=== PATIENT | female | born 1970 | race Caucasian/White ===

== ENCOUNTER → 2017-03-07 | Outpatient (CLI) | payer OTHER, SELFPAY | PROVIDERS: Family Provider Emergency Medicine; Visit Provider Specialist | DX: R42 Dizziness and giddiness (principal); R53.1 Weakness | CPT/HCPCS: 70553; 72141; 76376; A9576 ==

== ENCOUNTER 2017-05-01 14:02 | Outpatient (RCR) | payer OTHER, SELFPAY ==
--- NOTE | 2017-05-01 15:57 | HMH.PTOPEV ---
Rehab Outpatient Evaluation Rehab OP Evaluation Start: 05/01/17 14:09 Freq: Status: Active Protocol: Document 05/01/17 15:37 PWNELSON (Rec: 05/01/17 15:55 PWNELSON [id number]) Electronically Signed By Abhay Murray PT 05/01/17 15:37 Outpatient Therapy Subjective History Subjective History This is the initial Physical Therapy evaluation for Estefani Hall. Pt is a 46 y/o female referred to PT for c/o balance disturbances. Pt reports c/o balance issues since 2007. Pt also reports c /o weakness and quick fatigue in both UE's and LE's. Pt reprots she jeri decreased sensation in bilateral feet. Pt reports long hx of ear infections, drainage, and hearing loss in L ear. Chief Complaint Weakness Other Symptom Type Other Symptoms Relieved By Nothing Symptoms Aggravated By Physical Activity Twisting Prior Functional Limitations Recreation Activity Walking Balance Bending/Stooping Current Functional Limitations Recreation Activity Walking Balance Bending/Stooping Symptom Description Intermittent Balance Eval Subjective Hx of Complaint Comment C/o dizziness and vertigo Chief Complaint vertigo Yes Did you feel dizzy, unsteady or faint? Yes Activity at onset unknown Prior Functional Limitations Prior Functional [place] Level fxnl independant Current Functional Limitations Comment rapid movements Hx of Falls Hx Falls No Number in last 6 months 0 Gait/Posture Asssessment General Gait Observation Wide Based Gait Assistive Devices None / NA Level of Transfer Assist Independent Hip Observation in Gait Swing No Deviation Hip Observation in Gait Stance No Deviation Ankle/Foot Observation in Gait Swing No Deviation Ankle/Foot Observation in Gait Stance No Deviation Body Alignment Posture Rigid Nystagmus Nystagmus Presence None Timed Up and Go Test 1. Is the Timed Up and Go test result > no or = to 12 seconds? 3. Is the Timed Up and Go Test result < yes 12 seconds? Oculomotor Gaze
== END 2017-05-01 14:03 | disposition home or self-care (01) ==
LOC: PT 14:02
PROVIDERS: Family Provider Emergency Medicine; PCP Emergency Medicine; Visit Provider Specialist
DX: R42 Dizziness and giddiness (principal); R53.1 Weakness

== ENCOUNTER → 2017-05-06 11:29 | Outpatient (CLI) | payer OTHER, SELFPAY ==
[2017-05-06 11:54] LABS: Basophils % 0.5 % (0.1-2.0); Eosinophils # 0.2 K/mm3 (0.0-0.4); Eosinophils % 3.5 % (0.1-12.0); Hematocrit 41.9 % (37.0-47.0); Hemoglobin 13.9 g/dL (12.2-16.2); Lymphocytes # 1.9 K/mm3 (0.7-4.5); Lymphocytes % 32.9 K/mm3 (10-50); Mean Corpuscular HGB Conc 33.1 g/dL (31.8-35.4); Mean Corpuscular Hemoglobin 30.1 pg (27.0-31.2); Mean Corpuscular Volume 90.9 fl (81-99); Mean Platelet Volume 7.5 fl (7.4-10.4); Monocytes # 0.3 K/mm3 (0.1-1.0); Monocytes % 5.9 % (1.7-9.3); Neutrophils # 3.2 K/mm3 (1.8-7.8); Neutrophils % 57.2 % (37.0-80.0); Platelet Count 310 K/mm3 (142-424); Red Blood Count 4.62 M/mm3 (4.20-5.40); Red Cell Distribution Width 12.7 % (11.5-17.5); White Blood Count 5.7 K/mm3 (4.8-10.8)
[2017-05-06 14:20] LABS: Alanine Aminotransferase 22 U/L (12-78); Albumin Level 4.1 gm/dL (3.4-5.0); Albumin/Globulin Ratio 1.5 (1.1-1.8); Alkaline Phosphatase 84 U/L (46-116); Anion Gap 11.1 mEq/L (5-15); Aspartate Amino Transferase 12 U/L (15-37); Bilirubin,Total 0.8 mg/dL (0.2-1.0); Blood Urea Nitrogen 10 mg/dL (7-18); Calcium 8.7 mg/dL (8.5-10.1); Carbon Dioxide 28 mmol/L (21.0-32.0); Chloride 107 mmol/L (98-107); Creatine Kinase 95 U/L (26-192); Creatinine,Serum 0.67 mg/dL (0.55-1.02); Estimated Glomerular Filt Rate 95 ml/min (>60); GFR (African American) 115 ML/MIN (>60); Globulin 2.8 gm/dl (1.3-3.2); Glucose 88 mg/dL (74-106); Potassium 4.1 mmoL/L (3.5-5.1); Sodium 142 mmol/L (136-145); Thyroid Stimulating Hormone 1.18 uIU/ml (0.358-3.740); Total Protein,Serum 6.9 gm/dL (6.4-8.2)
[2017-05-07 13:21] LABS: Folate 10.3 ng/mL (>3.0); Vitamin B12 330 pg/mL (232-1245)
[2017-05-08 11:51] LABS: Antinuclear Antibodies, IFA Negative (.)
== END ==
PROVIDERS: Visit Provider Specialist
DX: R42 Dizziness and giddiness (principal); R53.1 Weakness
CPT/HCPCS: 36415; 80053; 82550; 82607; 82746; 84443; 85025; 86038

== ENCOUNTER → 2017-06-16 12:26 | Outpatient (POV) | payer OTHER, SELFPAY | PROVIDERS: Family Provider Emergency Medicine; PCP Nurse Practitioner Family; Visit Provider Specialist | DX: R29.898 Other symptoms and signs involving the musculoskeletal system (principal); R53.1 Weakness; R42 Dizziness and giddiness | CPT/HCPCS: 95886; 95910 ==

== ENCOUNTER → 2017-06-19 14:18 | Outpatient (CLI) | payer OTHER, SELFPAY ==
[2017-06-19 15:53] LABS: Free Thyroxine Index 2.9 ug/dL (5.93-13.13); Magnesium 1.7 mg/dL (1.4-2.2); Thyroid Stimulating Hormone 0.78 uIU/ml (0.358-3.740); Triiodothryronine (T3) Uptake 32 % (31-39)
[2017-06-21 19:03] LABS: Vitamin B12 543 pg/mL (232-1245)
[2017-06-23 19:08] LABS: 1,25-Dihydroxy, Vitamin D-2 32 pg/mL (.)
[2017-06-24 06:16] LABS: 1,25 Dihydroxy Vitamin D 62 pg/mL (.); 1,25-Dihydroxy, Vitamin D-3 30 pg/mL (.)
== END ==
PROVIDERS: PCP Nurse Practitioner Family; Visit Provider Nurse Practitioner Family
DX: F41.9 Anxiety disorder, unspecified (principal)
CPT/HCPCS: 36415; 82607; 82652; 83735; 84436; 84443; 84479

== ENCOUNTER → 2017-10-03 10:20 | Outpatient (CLI) | payer OTHER, SELFPAY ==
--- NOTE | 2017-10-03 10:21 | MM_ITS ---
MM Dig screening mamm BI w/CAD ORDERING PHYSICIAN : John Ji PATIENT AGE: 46 years GENDER: Female COMPARISON: September, and March, INDICATION: ITS.REASON: screening. Routine screening.. Patient with no hormones. Does reports soreness at the left and right breast. Greater on left. No surgeries or procedures. Family history. Maternal grandmother with breast cancer TECHNIQUE: Standard CC and MLO images were obtained. R2 CAD reviewed. FINDINGS: Low-density breast bilaterally with no dominant mass nor suspicious calcification. . No architectural distortion. It significant decreased breast density since 2010 with progressive fatty replacement since then evident . RIGHT BREAST: No significant new findings. Right breast stable minimal fibrotic elements behind the right nipple extending towards upper-outer quadrant LEFT BREAST: Tiny area of nodularity behind the left nipple is not changed appreciably on MLO view.. Can be followed in one year. IMPRESSION: No significant interval change. Bilateral follow-up in one year recommended and should be encouraged. BI-RADS Category: 2 Benign Finding(s) RECOMMENDED FOLLOW-UP: 1YR 1 YEAR FOLLOW-UP (A letter has been sent to the patient regarding results of the study.)
== END ==
PROVIDERS: Family Provider Emergency Medicine; PCP Emergency Medicine; Visit Provider Nurse Practitioner Family
DX: Z12.31 Encounter for screening mammogram for malignant neoplasm of breast (principal)
CPT/HCPCS: 77067

== ENCOUNTER → 2017-11-11 11:06 | Outpatient (POV) | payer OTHER, SELFPAY | PROVIDERS: Family Provider Emergency Medicine; PCP Emergency Medicine; Visit Provider Otolaryngology | DX: Z00.00 Encounter for general adult medical examination without abnormal findings (principal) ==

== ENCOUNTER → 2017-11-25 11:08 | Outpatient (POV) | payer OTHER, SELFPAY | PROVIDERS: Family Provider Emergency Medicine; PCP Emergency Medicine; Visit Provider Otolaryngology | DX: Z00.00 Encounter for general adult medical examination without abnormal findings (principal) ==

== ENCOUNTER → 2017-12-10 09:30 | Outpatient (REF) | payer OTHER, SELFPAY ==
[2017-12-10 13:46] LABS: Amphetamine/Metha Screen,Urine Negative ng/mL (<1000); Barbiturates Screen,Urine Negative ng/mL (<200); Benzodiazepines Screen,Urine Negative ng/mL (<200); Cannabinoid Screen,Urine Negative ng/mL (<50); Cocaine Screen,Urine Negative ng/mL (<300); Methadone Screen,Urine Negative ng/mL (<300); Opiate Screen,Urine Negative ng/mL (<300); Phencyclidine Screen,Urine Negative ng/mL (<25)
== END ==
LOC: LAB 09:30
PROVIDERS: Visit Provider Emergency Medicine
DX: Z79.899 Other long term (current) drug therapy (principal)
CPT/HCPCS: 80305

== ENCOUNTER → 2017-12-29 11:25 | Outpatient (CLI) | payer OTHER, SELFPAY | PROVIDERS: Family Provider Emergency Medicine; PCP Emergency Medicine; Visit Provider Emergency Medicine | DX: Z79.899 Other long term (current) drug therapy (principal); J44.9 Chronic obstructive pulmonary disease, unspecified | CPT/HCPCS: 94060; 94640; 94727; 94729 ==

== ENCOUNTER 2020-02-09 12:12 | Emergency (ER) | payer OTHER, SELFPAY ==
[2020-02-09 12:15] VITALS: BP 124/64; PULSE 74; RESP 20; TEMP 36.8; O2SAT 99; BMI 18.8
--- NOTE | 2020-02-09 12:29 | HMH.EDUTC ---
[facility] [place] Clinical Impression: Sinusitis Qualifiers: Sinusitis location: unspecified location Chronicity: unspecified Qualified Code(s): J32.9 - Chronic sinusitis, unspecified Otitis media Qualifiers: Otitis media type: unspecified Laterality: left Qualified Code(s): H66.92 - Otitis media, unspecified, left ear Disposition: Home, Self-Care Condition on Discharge: Good Instructions: Sinusitis, Middle Ear Infection, Azithromycin Additional Instructions: *Monitor Temp, Over the counter Motrin or Tylenol as directed/as needed Tylenol every 4 hours and Motrin every 6 hours (as long as your family doctor has told you that you can take it) for fever or pain. and straight to ER if unable to lower temp less than 101.0 after medication given *Warm salt water gargles may help to soothe the throat *Throat Lozenges *Warm fluids like tea with honey may help to soothe the throat *Sleep elevated *Humidifier/Vaporizer *Flonase 2 sprays in each nostril daily but be aware that it may take 2-3 days before you notice improvement Follow up IMMEDIATELY for new or worsening symptoms or no Noticeable improvement over the next 48-72 hours. 911 for difficulty breathing or swallowing Prescriptions: Fluticasone Propionate [Flonase 50mcg nasal spray 16gm] 1 spr NS DAILY #1 bottle Transmission Status: Pending to [facility] # Azithromycin [Z-Waqas 250mg Tab] 250 mg PO DIRECTED #6 tab Transmission Status: Pending to [facility] # Referrals: Derick Farias MD [Primary Care Provider] - As needed Forms: Work/School Release Medical Decision Making - Tank Inquiry Pt receiving controlled substance: No Tank was queried for this patient: No Vital Signs: 02/09/20 12:15 Temperature 98.2 F Temperature Source Oral Pulse Rate [Right Brachial] 74 Respiratory Rate 20 Blood Pressure [Right Arm] 124/64 Blood Pressure Mean [Right Arm] 84 Blood Pressure Source [Right Arm] Automatic Cuff Blood Pressure Position [Right Arm] Sitting 02 Sat by Pulse Oximetry 99 Oxygen Delivery Method Room Air [facility] [place] - General Stated complaint: L ear pain, cough Time Seen by Provider: 02/09/20 12:29 Mode of Arrival: Ambulatory Source of Information: Patient Limitations: No Limitations Description of Symptoms (Recalled from Triage Doc. by RN): PATIENT C/O COUGH, RUNNY NOSE, NASAL CONGESTION, DRY THROAT, AND LEFT EAR PAIN SINCE FRIDAY HEENT Symptoms (Recalled from RN notes): Yes Resp Symptoms (Recalled from RN notes): Yes Skin Symptoms (Recalled from RN notes): No MS Symptoms (Recalled from RN notes): No Functional Status (Recalled from RN notes): WNL - History of Present Illness Provider Complaint: Patient state that about this time every year she gets an upper respiratory infection States that she has been having some sinus pain and pressure, itchy scratchy throat, cough but has history of COPD and pain in her left ear States that she wasnt able to go to work and they wanted her to get checked before she can come back - Related Data Previous Rx's Medication Instructions Recorded Azithromycin [Z-Waqas 250mg Tab] 250 mg PO DIRECTED #6 tab 02/09/20 Fluticasone Propionate [Flonase 1 spr NS DAILY #1 bottle 02/09/20 50mcg nasal spray 16gm] Allergies Allergy/AdvReac Type Severity Reaction Status Date / Time Penicillins Allergy Unknown Verified 04/30/19 11:44 Sulfa (Sulfonamide Allergy Unknown Verified 04/30/19 11:44 Antibiotics) [SULFA (SULFONAMIDE ANTIBIOTICS)] omeprazole [From Prilosec] Allergy Verified 04/30/19 11:44 - Worker's Comp Is this a Worker's Comp case?: No [facility] History - Hepatitis A Screen Drug use history?: No High risk sexual behaviors?: No History of sexually transmitted infection?: No Currently employed?: No Childcare worker?: No Do you have indoor plumbing?: Yes Do you have electricity?: Yes Attestation statement:: This patient has been screened for
[2020-02-09 12:37] VITALS: BP 124/64; PULSE 74; RESP 20; TEMP 36.8; O2SAT 99
== END 2020-02-09 12:38 | disposition home or self-care (01) ==
PROVIDERS: Emergency Provider Nurse Practitioner; PCP Family Medicine
DX: J32.9 Chronic sinusitis, unspecified (principal); H66.92 Otitis media, unspecified, left ear; K21.9 Gastro-esophageal reflux disease without esophagitis; J44.9 Chronic obstructive pulmonary disease, unspecified; Z88.0 Allergy status to penicillin; Z88.2 Allergy status to sulfonamides
CPT/HCPCS: 99201

== ENCOUNTER 2020-06-28 18:57 | Emergency (ER) | payer OTHER, SELFPAY ==
[2020-06-28 19:24] VITALS: BP 146/92; PULSE 87; RESP 19; TEMP 37; O2SAT 98; BMI 21.4
[2020-06-28 19:26] LABS: Apearance,Urine Clear (Clear); Color,Urine Yellow (Yellow); PH,Urine 6.5 (5.0-8.5)
[2020-06-28 19:27] LABS: Bilirubin,Urine Negative (Negative); Blood, Urine 2+ (Negative); Glucose,Urine (UA) Negative (Negative); Ketones,Urine TRACE (Negative); Protein,Urine 1+ (Negative); Specific Gravity, Urine 1.025 (1.005-1.030); UTC Leukocyte Esterase,Urine 1+ (Negative); UTC Nitrate,Urine Negative (Negative); Urobilinogen,Urine 1 EU/dl (0.2)
--- NOTE | 2020-06-28 19:29 | HMH.EDUTC ---
[facility] [place] Impression: UTI (urinary tract infection) Qualifiers: Urinary tract infection type: site unspecified Hematuria presence: with hematuria Qualified Code(s): N39.0 - Urinary tract infection, site not specified; R31.9 - Hematuria, unspecified Disposition: Home, Self-Care Condition on Discharge: Good Instructions: DI for Urinary Tract Infection (UTI), Blood in Urine, DI for Ear Pain-Adult, Nitrofurantoin Additional Instructions: *Increase fluids. Water not Soda or Tea *Start antibiotic immediately and be sure to take as ordered for the FULL length of time although you should start to see improvement over the next 48 hours *Pyridium as needed Remember this medication will turn your urine Rice. This is normal but it will stain what ever it gets on *You should not use Pyridium for more than 48 hours. If so , follow up with your primary physician to review urine culture and ensure that antibiotic is adequate for infection *Be SURE to follow up anytime for new or worsening symptoms with your family doctor. AND in 48 hours for urine culture results with your family doctor, if you do not have a doctor then you may call back to the [facility] for urine culture results and further treatment. We do recommend that you choose and establish care with a Primary Care Physician. AND follow up with them in 10-14 days to repeat UA to ensure infection is resolved and blood no longer present *Be sure to let your PCP know that we sent urine cultures from the [facility] so they can follow up to ensure that you area the on the correct antibiotic Call your doctor office and make appointment for 48 hours (2 days from today) to follow up and get the results of your urine culture and further treatment Make sure to follow up for your Urine culture results Return if needed Straight to ER if any life threatening symptoms Prescriptions: Nitrofurantoin Monohyd/M-Cryst [Macrobid 100 mg Capsule] 100 mg PO BID 7 Days #14 cap Transmission Status: Pending to [facility] # Phenazopyridine HCl [Pyridium 200mg Tablet] 200 pow PO TID #6 tab Transmission Status: Pending to [facility] [employer] # Referrals: Derick Farias MD [Primary Care Provider] - As needed Forms: Work/School Release Time of Disposition: 19:55 Medical Decision Making - Tank Inquiry Pt receiving controlled substance: No Tank was queried for this patient: No Vital Signs: 06/28/20 19:24 Temperature 98.6 F Temperature Source Oral Pulse Rate [Right Brachial] 87 Respiratory Rate 19 Blood Pressure [Right Arm] 146/92 H Blood Pressure Mean [Right Arm] 110 Blood Pressure Source [Right Arm] Automatic Cuff Blood Pressure Position [Right Arm] Sitting 02 Sat by Pulse Oximetry 98 Oxygen Delivery Method Room Air - Lab Data Lab results reviewed: Yes: I reviewed the patient's lab results. Lab Results 06/28/20 19:00: Urine Color Yellow, Urine Appearance Clear, Urine pH 6.5, Ur Specific [place] 1.025, Urine Protein 1+, Urine Glucose (UA) Negative, Urine Ketones Trace, Urine Blood 2+, Urine Nitrate Negative, Urine Bilirubin Negative, Urine Urobilinogen 1, Ur Leukocyte Esterase 1+ A 06/28/20 19:26: Strep Scn Rapid Clinic Negative Orders (Tests/Meds): ORDERS Category Date Time Status Strep Screen Confirmation Stat Micro 06/28/20 19:26 Received Urine Culture Stat Micro 06/28/20 19:26 Ordered [facility] [facility] [place] - General Stated complaint: Possible UTI, left ear ache Time Seen by Provider: 06/28/20 19:29 Mode of Arrival: Ambulatory Source of Information: Patient Limitations: No Limitations Description of Symptoms (Recalled from Triage Doc. by RN): Patient reports possible UTI, ear and throat pain. HEENT Symptoms (Recalled from RN notes): Yes Resp Symptoms (Recalled from RN notes): No Skin Symptoms (Recalled from RN notes): No MS Symptoms (Recalled from RN notes): No Functional Status (Recalled from RN notes): wnl - History of Present Illness Provider Comp
[2020-06-28 19:38] LABS: UTC Strep Screen (Rapid) Negative (Negative)
[2020-06-28 20:00] VITALS: BP 146/92; PULSE 87; RESP 19; TEMP 37; O2SAT 98
== END 2020-06-28 20:00 | disposition home or self-care (01) ==
PROVIDERS: Emergency Provider Nurse Practitioner; PCP Family Medicine
DX: N30.01 Acute cystitis with hematuria (principal); K21.9 Gastro-esophageal reflux disease without esophagitis; J44.9 Chronic obstructive pulmonary disease, unspecified; Z88.0 Allergy status to penicillin; Z88.2 Allergy status to sulfonamides; Z79.899 Other long term (current) drug therapy
CPT/HCPCS: 81003; 87086; 87088; 87186; 87880; 99202; G0463

== ENCOUNTER 2020-10-03 16:59 | Emergency (ER) | payer OTHER, SELFPAY ==
[2020-10-03 17:00] VITALS: BP 140/86; PULSE 65; RESP 20; TEMP 37.1; O2SAT 98; BMI 21.4
--- NOTE | 2020-10-03 18:43 | HMH.EDUTC ---
[facility] [place] Clinical Impression: Viral syndrome Pharyngitis Qualifiers: Pharyngitis/tonsillitis etiology: unspecified etiology Qualified Code(s): J02.9 - Acute pharyngitis, unspecified Disposition: Home, Self-Care Condition on Discharge: Good Instructions: Throat Culture, DI for Viral Pharyngitis Additional Instructions: Drink plenty of fluids. Take tylenol for pain or fever. Return if you begin to have difficulty breathing. Follow up with your regular doctor. GO TO THE ER FOR ANY WORSENING SYMPTOMS Prescriptions: predniSONE [Deltasone 10mg tablet] 10 mg PO BID 3 Days #6 tab Transmission Status: Received by [facility] #[id number] Referrals: Derick Farias MD [Primary Care Provider] - Time of Disposition: 18:47 Medical Decision Making - Medical Records Medical records reviewed: No: I reviewed the patient's medical records. - Tank Inquiry Pt receiving controlled substance: No Vital Signs: 10/03/20 17:00 10/03/20 18:55 Temperature 98.7 F 98.7 F Temperature Source Oral Pulse Rate 65 Pulse Rate [Left Radial] 65 Respiratory Rate 20 20 Blood Pressure 140/86 Blood Pressure [Right Arm] 140/86 Blood Pressure Mean [Right Arm] 104 Blood Pressure Source [Right Arm] Automatic Cuff Blood Pressure Position [Right Arm] Sitting 02 Sat by Pulse Oximetry 98 Oxygen Delivery Method Room Air Room Air - Lab Data Lab results reviewed: Yes: I reviewed the patient's lab results. Medical Decision Narrative: She refused a covid-19 swab. Her strep swab was negative. Throat culture was obtained and sent to the micro lab. [facility] [place] - General Stated complaint: Sore throat Time Seen by Provider: 10/03/20 17:50 Mode of Arrival: Ambulatory Source of Information: Patient Limitations: No Limitations Description of Symptoms (Recalled from Triage Doc. by RN): c/o throat with blisters and ear hurting for 2 days HEENT Symptoms (Recalled from RN notes): Yes Resp Symptoms (Recalled from RN notes): No Skin Symptoms (Recalled from RN notes): No MS Symptoms (Recalled from RN notes): No Functional Status (Recalled from RN notes): wnl - History of Present Illness Provider Complaint: She c/o sore throat for the past 1 day. She denies other complaints. She refuses a covid-19 test. - Related Data Previous Rx's Medication Instructions Recorded Azithromycin [Z-Waqas 250mg Tab] 250 mg PO DIRECTED #6 tab 02/09/20 Fluticasone Propionate [Flonase 1 spr NS DAILY #1 bottle 02/09/20 50mcg nasal spray 16gm] Nitrofurantoin Monohyd/M-Cryst 100 mg PO BID 7 Days #14 cap 06/28/20 [Macrobid 100 mg Capsule] Phenazopyridine HCl [Pyridium 200 pow PO TID #6 tab 06/28/20 200mg Tablet] estradiol 1 g VAGINAL WEEKLY #42.5 g 09/08/20 predniSONE [Deltasone 10mg tablet] 10 mg PO BID 3 Days #6 tab 10/03/20 Allergies Allergy/AdvReac Type Severity Reaction Status Date / Time Penicillins Allergy Unknown Verified 04/30/19 11:44 Sulfa (Sulfonamide Allergy Unknown Verified 04/30/19 11:44 Antibiotics) [SULFA (SULFONAMIDE ANTIBIOTICS)] omeprazole [From Prilosec] Allergy Verified 04/30/19 11:44 - Worker's Comp Is this a Worker's Comp case?: No H History - Hepatitis A Screen Drug use history?: No High risk sexual behaviors?: No History of sexually transmitted infection?: No Currently employed?: No Childcare worker?: No Do you have indoor plumbing?: Yes Do you have electricity?: Yes Attestation statement:: This patient has been screened for Hepatitis A risk factors. I have reviewed the patient's past medical history: Yes Medical History: Reports:: Anxiety, Arrhythmia, Chronic Obstructive Pulmonary Disease (COPD), Gastroesophageal Reflux Disease(GERD) Denies:: Cancer, Diabetes Mellitus Type 1, Diabetes Mellitus Type 2, MRSA Other Surgeries: Yes: Cardiac Catheterization, Tubal Ligation, Other Amputation: No Fractures: No Comment: Cardiac cath, diagnostic laps, oral naranjo
[2020-10-03 18:55] VITALS: BP 140/86; PULSE 65; RESP 20; TEMP 37.1; O2SAT 98
[2020-10-04 09:34] LABS: UTC Strep Screen (Rapid) Negative (Negative)
== END 2020-10-03 18:59 | disposition home or self-care (01) ==
PROVIDERS: Emergency Provider Nurse Practitioner Family; PCP Family Medicine
DX: J02.9 Acute pharyngitis, unspecified (principal); B34.9 Viral infection, unspecified; F41.9 Anxiety disorder, unspecified; K21.9 Gastro-esophageal reflux disease without esophagitis; Z88.0 Allergy status to penicillin; Z88.2 Allergy status to sulfonamides
CPT/HCPCS: 87880; 99202; G0463

== ENCOUNTER 2023-12-21 15:45 | Emergency (ER) | payer SELFPAY ==
[2023-12-21 17:10] VITALS: BP 144/89; PULSE 93; RESP 20; TEMP 36.9; O2SAT 99; BMI 22.4
--- NOTE | 2023-12-21 17:27 | ED_ITS ---
Discharge Plan Disposition Patient Disposition: Home, Self-Care Condition: Good Prescriptions Prescriptions: New dextromethorphan-guaifenesin [Delsym Cough-Chest Congest DM] 5-100 mg/5 mL liquid 10 ml PO Q8H PRN (Reason: cough) Qty: 100 0RF azithromycin [Zithromax Z-Waqas] 250 mg tablet See Rx Instructions .ROUTE .COMPLEX 5 Days Qty: 6 0RF Rx Instructions: For 250 mg dose pack: take 500 mg today (day 1), then 250 mg for 4 days (days 2-5) prednisone 20 mg tablet 20 mg PO BID 5 Days Qty: 10 0RF Referrals Follow up/Referrals: Provider,Referral, MD [Primary Care Provider] - See instructions Activity Restrictions/Add. Instructions Additional Instructions/Restrictions: * Start antibiotic today. Be sure to complete entire prescription even if feeling better * Monitor temp. Tylenol every 4 hours as needed and / or ibuprofen every 6 hours as needed ( As long as your primary care physician has told you that it ok to take both. For fever/aches/pains ER if no less than 101 despite Tylenol or Motrin * Humidifier/vaporizer or hot steamy shower * Mucinex during the day for your cough and cough suppressant only at night. Be sure to drink lots of water. Insurance may not cover a prescriptions for mucinex. Might be cheaper to get 400mg tablets and take 2 tablet in the morning, mid-day and evening with lots of water. *Start steroid today. Helps with inflammation therefore, cough and wheezing. Follow directions on the package. Reviewed side effects. Patient reports taking them before. Follow up IMMEDIATELY for new or worsening of symptoms OR no noticeable improvement over the next 48-72 hours. 911 immediately for any life threatening symptoms such as chest pain or difficulty breathing Clinical Impressions Clinical Impression: Acute bronchitis Qualifiers: Bronchitis organism: unspecified organism Qualified Code(s): J20.9 - Acute bronchitis, unspecified Stand Alone Forms Stand Alone Forms: Work/School Release Instructions Patient Instructions: Acute Bronchitis, DI for Cough -- Adult Print Language Print Language: Tamazight Discharge ED Provider: Carmelita Choi [facility] [place] General Stated complaint: sore throat,cough,lungs are hurting Mode of Arrival: Ambulatory Source of Information: Patient Limitations: No Limitations Time Seen by Provider: 12/21/23 17:27 Description of Symptoms (Recalled from Triage Doc. by RN): PATIENT C/O SOA, COUGH, SORE THROAT, AND RIB/BACK PAIN THAT STARTED LAST FRIDAY HEENT Symptoms (Recalled from RN notes): Yes Resp Symptoms (Recalled from RN notes): Yes Skin Symptoms (Recalled from RN notes): No MS Symptoms (Recalled from RN notes): Yes Functional Status (Recalled from RN notes): WNL History of Present Illness Provider Complaint: Patient states that she started about a week ago with cough, chest congestion, feeling achy and not feeling well and not sure if she may have broken a rib coughing or pulled something but she states she is having pain in her left lower ribs when she coughs States at times she is coughing up mucous States that she has been around several family members that has been sick not sure if she may have caught something states grandchild was recently dx with croup she is not sure which one Related Data Previous Rx's ?Medication ?Instructions ?Recorded azithromycin 250 mg tablet See Rx Instructions PO .COMPLEX 5 12/21/23 (Zithromax Z-Waqas) days #6 tabs dextromethorphan-guaifenesin 5 10 ml PO Q8H PRN cough #100 mL 12/21/23 mg-100 mg/5 mL oral liquid (Delsym Cough-Chest Congestion DM) prednisone 20 mg tablet 20 mg PO BID 5 days #10 tabs 12/21/23 Allergies Allergy/AdvReac Type Severity Reaction Status Date / Time Penicillins Allergy Unknown Verified 02/10/21 17:00 Sulfa (Sulfonamide Allergy Unknown Verified 02/10/21 17:00 Antibiotics) [SULFA (SULFONAMIDE ANTIBIOTICS)] omeprazole [From Prilosec] Allergy Verified 02/10/21 17:00 Worker's Comp Is this a Worker's Comp case?: No [facility] Disclaimer: The information contained in this section may have been updated after the patient was seen, as this information can be updated by other users. Medical History (Updated 12/21/23 @ 20:05 by Carmelita Choi APRN) UTI (urinary tract infection) GERD (gastroesophageal reflux disease) Anxiety Migraine COPD (chronic obstructive pulmonary disease) Surgical History (Updated 12/21/23 @ 17:30 by Marsha Baker RN) History of tonsillectomy History of tubal ligation H/O cardiac catheterization Social History Smoking Status: Former smoker alcohol intake: never counseling provided: none substance use type: denies use current occupational status: employed Travel in the last 8 weeks: None ROS Obtained: Yes All systems reviewed & no additional complaints except as documented and Yes Systems reviewed as appropriate & no additional complaints except as documented Constitutional Constitutional: Reports system reviewed and no additional complaints, except as documented, Reports as per HPI, Reports body ache and Reports chills ENT Ears, Nose, Mouth, and Throat: Reports system reviewed and no additional complaints, except as documented, Reports as per HPI, Reports nasal congestion and Reports sinus pressure Cardiovascular Cardiovascular: Reports system reviewed and no additional complaints, except as documented and Reports as per HPI Respiratory Respiratory: Reports system reviewed and no additional complaints, except as documented, Reports as per HPI, Reports shortness of breath (at times after coughing), Reports chest congestion and Reports cough Musculoskeletal Musculoskeletal: Reports system reviewed and no additional complaints, except as documented and Reports as per HPI Physical Exam General General appearance: alert and in no apparent distress ENT ENT exam: Present mucous membranes moist Expanded ENT Exam Nose exam: Present sinus tenderness Respiratory Respiratory exam: Present normal lung sounds bilaterally; Absent respiratory distress or wheezes Cardiovascular Cardiovascular exam: Present regular rate, normal rhythm and normal heart sounds Neurological Exam Neurological exam: Present alert, oriented X3 and normal gait Medical Decision Making Medical Records Screening: Per USPSTF and CDC recommendations, given the prevalence of disease in our region, it is our hospital?s policy to screen for HIV and viral Hepatitis for all patients aged 18 and over and those with ongoing risk factors. Tank Inquiry Pt receiving controlled substance: No Tank was queried for this patient: No Vital Signs: 12/21/23 17:10 Temperature 98.5 F Temperature Source Oral Pulse Rate [Left Brachial] 93 H Respiratory Rate 20 Blood Pressure [Left Arm] 144/89 H Blood Pressure Mean [Left Arm] 107 Blood Pressure Source [Left Arm] Automatic Cuff Blood Pressure Position [Left Arm] Sitting 02 Sat by Pulse Oximetry 99 Oxygen Delivery Method Room Air Lab Data Lab results reviewed: Yes I reviewed the patient's lab results. Radiology Data #1: Image(s): Chest (with left ribs)
--- NOTE | 2023-12-21 17:34 | XR_ITS ---
PROCEDURE INFORMATION: Exam: XR Left Ribs with PA Chest Exam date and time: 12/21/2023 5:39 PM Age: 52 years old Clinical indication: Pain; Other: Left sided; Additional info: Cough/pain in ribs with cough TECHNIQUE: Imaging protocol: Radiologic exam of the left ribs with PA chest. Views: 3 views COMPARISON: CR CXR2V XR chest 2V 01/28/2018 2:33 PM FINDINGS: Lungs: Unremarkable. No consolidation. Pleural spaces: Unremarkable. No pleural effusion. No pneumothorax. Heart/Mediastinum: Unremarkable. No cardiomegaly. Bones/joints: Osseous alignment is normal. No acute fracture. No significant arthritic change. IMPRESSION: Negative left rib films and chest
[2023-12-21 17:35] LABS: UTC Strep Screen (Rapid) Negative (Negative)
[2023-12-21 17:36] LABS: UTC Influenza A Antigen Negative (Negative); UTC Influenza B Antigen Negative (Negative)
[2023-12-21 20:08] VITALS: BP 144/89; PULSE 93; RESP 20; TEMP 36.9; O2SAT 99
== END 2023-12-21 20:11 | disposition home or self-care (01) ==
PROVIDERS: Emergency Provider Nurse Practitioner
DX: J20.9 Acute bronchitis, unspecified (principal)
CPT/HCPCS: 71101; 87804; 87880; 99213; G0381